=== PATIENT | male | born 1965 | race Caucasian/White ===

== ENCOUNTER 2022-10-06 13:53 | Emergency (ER) | payer OTHER, SELFPAY ==
--- NOTE | ~2022-10-06 | CT_ITS ---
EXAMINATION: CT ABDOMEN AND PELVIS WITH CONTRAST CLINICAL INFORMATION: Mid abdominal pain with question of pancreatitis COMPARISON: Ultrasound abdomen earlier today TECHNIQUE: Multidetector volumetric images were obtained from the superior aspect of the liver through the pubic symphysis following administration 85 mL of Omnipaque 350 intravenous contrast. Sagittal and coronal reformatted images were obtained on the technologist's workstation. Oral contrast: No This CT examination was performed using dose optimization techniques as appropriate, variously including the following: *Automated exposure control *Adjustment of mA and/or kV according to patient size (this includes techniques or standardized protocols for targeted exams where dose is matched to indication/reason for exam; i.e. extremities or head) *Use of iterative reconstruction technique DLP: 374 mGy-cm FINDINGS: LUNG BASES: The visualized lung bases are unremarkable. LIVER, GALLBLADDER, AND BILIARY TREE: The liver is normal in size, shape, and attenuation. No focal hepatic lesion or intrahepatic biliary ductal dilatation is present. The gallbladder is contracted but unremarkable with no evidence of radiopaque gallstones, gallbladder wall thickening, or obvious pericholecystic inflammatory changes. The common bile duct is dilated at 0.9 cm. A distal obstructing stone or mass is not seen. PANCREAS: Pancreas appears unremarkable without any evidence to suggest pancreatitis. The pancreatic duct measures only 2 mm. No stones or masses are seen. SPLEEN: Unremarkable. ADRENAL GLANDS: Unremarkable. KIDNEYS AND URETERS: The kidneys are normal in size, shape, and attenuation. Bilateral parapelvic Bosniak class I simple renal cysts are seen. There is a 7 mm benign fat density angiomyolipoma arising from the lower pole of the right kidney posteriorly corresponding with the echogenic mass seen on the ultrasound. No worrisome solid masses are seen. No hydronephrosis, hydroureter, or calculi seen. No perinephric stranding. BLADDER: There is symmetric thickening of the bladder wall at 6 mm. No bladder calculi. No bladder masses. GASTROINTESTINAL TRACT: The small and large bowel are unremarkable aside from extensive sigmoid diverticulosis without evidence of diverticulitis. The appendix is unremarkable. ABDOMINAL WALL: No significant hernia is appreciated. LYMPH NODES: There is no retroperitoneal lymphadenopathy VASCULAR: Unremarkable. PELVIC VISCERA: The prostate and seminal vesicles are unremarkable. OSSEOUS STRUCTURES: Unremarkable. CT/CT abdomen pelvis w IV con IMPRESSION: 1. There is dilatation of the common bile duct but no intrahepatic biliary ductal dilatation. If clinically indicated, further evaluation could always be performed with MRCP. 2. The pancreas appears unremarkable without any evidence of pancreatitis. 3. Incidental note made of bilateral Bosniak class I renal cysts which need no further imaging or follow-up and a benign 7 mm right renal angiomyolipoma. 4. Incidental note made of sigmoid diverticulosis without diverticulitis and symmetric thickening of the bladder wall. Fleischner guidelines were followed.
--- NOTE | ~2022-10-06 | US_ITS ---
EXAMINATION: US ABDOMEN LIMITED CLINICAL INFORMATION: Right upper quadrant pain. COMPARISON: None TECHNIQUE: Real-time imaging of the right upper quadrant abdominal viscera. FINDINGS: PANCREAS: The pancreas appears unremarkable, without masses or ductal dilatation, with the exception of the tail which is obscured by bowel gas. LIVER: The liver is normal in size. The liver contour is normal. There is diffuse increased liver parenchymal echogenicity, consistent with hepatic steatosis. No focal hepatic lesion. There is no intrahepatic biliary duct dilatation seen. GALLBLADDER: The gallbladder is contracted but otherwise unremarkable without evidence of stones, sludge, polyps, wall thickening or pericholecystic fluid. COMMON BILE DUCT: Normal in caliber measuring 0.7 cm in diameter. RIGHT KIDNEY: There is a brightly echogenic 0.8 cm cortical mass present in the right kidney that has ultrasound appearances consistent with a benign angiomyolipoma. There is an extrarenal pelvis but no hydronephrosis. No renal calculi or focal parenchymal lesions. The kidney measures 10.0 cm in maximum dimension. FREE FLUID: None. US/US abdomen limited IMPRESSION: 1. Hepatic steatosis. 2. Incidental note made of a 0.8 cm right renal mass with ultrasound appearances consistent with a benign angiomyolipoma. If certainty of diagnosis is needed, MRI would be the exam of choice.
--- NOTE | 2022-10-06 15:48 | ED_ITS ---
HPI - Abdominal Pain General Chief Complaint: Abdominal Pain <JOSE Vergara - Last Filed: 10/06/22 15:53> Stated Complaint: severe r side abd pain <JOSE Vergara - Last Filed: 10/06/22 15:53> Time Seen by Provider: 10/06/22 21:01 <JOSE Vergara - Last Filed: 10/06/22 15:53> Source: patient <Francisco Aranda MD - Last Filed: 10/07/22 00:58> Mode of arrival: ambulatory <Francisco Aranda MD - Last Filed: 10/07/22 00:58> Limitations: no limitations <Francisco Aranda MD - Last Filed: 10/07/22 00:58> History of Present Illness HPI narrative: patient with no significant past medical history noticed pain in the right upper quadrant since a.m. today patient has no history of alcohol use no history of pancreatitis no nausea no vomiting no abdominal distension no relation of pain with food no urinary complaints no fever or chills patient never had similar pain in the past no weight loss prior colonoscopy was normal <Francisco Aranda MD - Last Filed: 10/07/22 00:58> Related Data Home Medications: Previous Rx's Medication Instructions Recorded pantoprazole 40 mg tablet,delayed 40 mg PO DAILY #30 tabs 10/06/22 release (Protonix) <JOSE Vergara - Last Filed: 10/06/22 15:53> Allergies/Adverse Reactions: Allergies Allergy/AdvReac Type Severity Reaction Status Date / Time No Known Allergies Allergy Verified 10/06/22 15:50 <JOSE Vergara - Last Filed: 10/06/22 15:53> Review of Systems Review of Systems Yes all other systems are reviewed and are negative <Francisco Aranda MD - Last Filed: 10/07/22 00:58> PMF Social History Social History: Social History Advance Directives: No Advance Directives Information Provided: No <JOSE Vergara - Last Filed: 10/06/22 15:53> Physical Exam ED Vital Signs: Vital Signs - 24 hr 10/06/22 15:49 10/06/22 20:30 Temperature 98.7 F 98.1 F Pulse Rate 104 H 90 Respiratory Rate 16 16 Blood Pressure 161/83 H 171/101 H Pulse Oximetry 97 97 Oxygen Delivery Method Room Air Room Air BMI result Body Mass Index 24.0 <JOSE Vergara - Last Filed: 10/06/22 15:53> Vital Signs - 24 hr 10/06/22 15:49 10/06/22 20:30 Temperature 98.7 F 98.1 F Pulse Rate 104 H 90 Respiratory Rate 16 16 Blood Pressure 161/83 H 171/101 H Pulse Oximetry 97 97 Oxygen Delivery Method Room Air Room Air BMI result Body Mass Index 24.0 <Francisco Aranda MD - Last Filed: 10/07/22 00:58> Appearance: Alert. Oriented X3. No acute distress. Eyes: PERRLA, No Nystagmus no pallor or icterus ENT: Pharynx normal. Oral Mucosa moist Neck: Normal inspection. Neck supple. CVS: Normal heart rate and rhythm. Pulses normal. Respiratory: No respiratory distress. Equal air entry bilateral, no wheezing/rales/rhonchi Abdomen: Soft , tenderness in right upper quadrant no rebound tenderness or guarding, Bowel sounds are present, no mass palpable, no CVA tenderness Skin: Skin warm and dry. Normal skin color. Normal skin turgor. Extremities: No lower extremity edema. No calf tenderness Neuro: Oriented X 3. No motor deficit. <Francisco Aranda MD - Last Filed: 10/07/22 00:58> Course Course Course Narrative: RME - 57 yo male presents to the ER with severe right upper quadrant pain that started this morning. Dizzy and nauseated but no vomiting. Admits to heavy drinking last night for the super bowl but denies any falls, trauma, bruises. Tachycardic and hypertensive in triage. Labs and RUQ U/S ordered. <JOSE Vergara - Last Filed: 10/06/22 15:53> Medical Decision Making Medical Decision Making MDM Narrative: patient with nonspecific right upper quadrant pain ultrasound was negative for gallstones CT scan was done which showed dilated CBD but no stone seen patient had normal liver function test no vomiting no pancreatic inflammation or Mass. patient advised to follow-up with economics consultant <Francisco Aranda MD - Last Filed: 10/07/22 00:58> Differential Diagnosis pancreatitis/ cholecystitis /peptic ulcer disease / kidney stone <Francisco Aranda MD - Last Filed: 10/07/22 00:58> Lab Data MDM Lab Attestation statement: I reviewed the patient's lab results. <Francisco Aranda MD - Last Filed: 10/07/22 00:58> Result Diagrams: 10/06/22 16:46 10/06/22 16:46 <JOSE Vergara - Last Filed: 10/06/22 15:53> Labs: Lab Results 10/06/22 10/06/22 10/06/22 Range/Units 16:46 16:46 16:46 WBC 9.1 (4.8-10.8) X10*3/uL RBC 4.77 (4.60-5.80) X10*6/uL Hgb 15.3 (14.0-18.0) g/dl Hct 44.9 (42.0-52.0) % MCV 94.1 (80.0-98.0) fL MCH 32.1 (27.0-33.0) pg MCHC 34.1 (31.0-36.0) g/dl RDW 12.6 (11.0-16.0) % Plt Count 221 (160-400) X10*3/uL MPV 8.7 L (9.4-12.4) fL Immature Gran % (Auto) 0.2 (0.0-0.4) % Neut % (Auto) 66.1 (45-73) % Lymph % (Auto) 25.3 (20-40) % Smith % (Auto) 7.0 (2-11) % Eos % (Auto) 0.6 (0-4) % Baso % (Auto) 0.8 (0-2) % Lymph # (Auto) 2.3 (1.2-4.9) X10*3/uL Smith # (Auto) 0.6 (0.1-1.2) X10*3/uL Eos # (Auto) 0.1 (0.0-0.4) X10*3/uL Baso # (Auto) 0.1 (0.0-0.2) X10*3/uL Abs Immat Gran (auto) 0.02 (0.00-0.03) X10*3/uL Absolute Neuts (auto) 6.0 (2.0-8.3) x10*3/uL Absolute Nucleated RBC 0.000 (0.0-0.012) X10*3/uL Nucleated RBC % (auto) 0.0 (0.0-0.2) /100WBC Sodium 142 (135-145) mmol/L Potassium 4.2 (3.3-5.1) mmol/L Chloride 103 (96-108) mmol/L Carbon Dioxide 27 (22-29) mmol/L Anion Gap 16 (12-20) BUN 14 (9-16) mg/dL Creatinine 0.94 (0.5-1.4) mg/dL Estim Creat Clear Calc 79.1 Estimated GFR > 60 Random Glucose 120 H (60-115) mg/dL Calcium 9.8 (8.4-10.2) mg/dL Magnesium 2.1 (1.6-2.6) mg/dL Total Bilirubin 0.6 (0.0-1.0) mg/dL Direct Bilirubin 0.2 (0.0-0.5) mg/dL AST 31 (5-37) U/L ALT 27 (0-40) U/L Alkaline Phosphatase 59 (39-117) U/L Total Protein 6.8 (6.5-8.0) g/dL Albumin 4.3 (3.5-5.0) g/dL Triglycerides 74 mg/dL Cholesterol 224 mg/dL LDL Cholesterol, Calc 103 mg/dl HDL Cholesterol 107 mg/dL Lipase 98 H (8-78) U/L Urine Color Urine Appearance Urine pH (5.0-9.0) Ur Specific [place] (1.005-1.025) Urine Protein (Neg-Trace) mg/dL Urine Glucose (UA) (Negative) mg/dL Urine Ketones (Negative) mg/dL Urine Blood (Negative) Urine Nitrite (Negative) Ur Leukocyte Esterase (Negative) COVID-19 (ZHANG) Negative (Negative) COVID-19 Clin Com See Note 10/06/22 Range/Units 20:32 WBC (4.8-10.8) X10*3/uL RBC (4.60-5.80) X10*6/uL Hgb (14.0-18.0) g/dl Hct (42.0-52.0) % MCV (80.0-98.0) fL MCH (27.0-33.0) pg MCHC (31.0-36.0) g/dl RDW (11.0-16.0) % Plt Count (160-400) X10*3/uL MPV (9.4-12.4) fL Immature Gran % (Auto) (0.0-0.4) % Neut % (Auto) (45-73) % Lymph % (Auto) (20-40) % Smith % (Auto) (2-11) % Eos % (Auto) (0-4) % Baso % (Auto) (0-2) % Lymph # (Auto) (1.2-4.9) X10*3/uL Smith # (Auto) (0.1-1.2) X10*3/uL Eos # (Auto) (0.0-0.4) X10*3/uL Baso # (Auto) (0.0-0.2) X10*3/uL Abs Immat Gran (auto) (0.00-0.03) X10*3/uL Absolute Neuts (auto) (2.0-8.3) x10*3/uL Absolute Nucleated RBC (0.0-0.012) X10*3/uL Nucleated RBC % (auto) (0.0-0.2) /100WBC Sodium (135-145) mmol/L Potassium (3.3-5.1) mmol/L Chloride (96-108) mmol/L Carbon Dioxide (22-29) mmol/L Anion Gap (12-20) BUN (9-16) mg/dL Creatinine (0.5-1.4) mg/dL Estim Creat Clear Calc Estimated GFR Random Glucose (60-115) mg/dL Calcium (8.4-10.2) mg/dL Magnesium (1.6-2.6) mg/dL Total Bilirubin (0.0-1.0) mg/dL Direct Bilirubin (0.0-0.5) mg/dL AST (5-37) U/L ALT (0-40) U/L Alkaline Phosphatase (39-117) U/L Total Protein (6.5-8.0) g/dL Albumin (3.5-5.0) g/dL Triglycerides mg/dL Cholesterol mg/dL LDL Cholesterol, Calc mg/dl HDL Cholesterol mg/dL Lipase (8-78) U/L Urine Color Yellow Urine Appearance Cloudy Urine pH 7.0 (5.0-9.0) Ur Specific [place] 1.020 (1.005-1.025) Urine Protein Negative (Neg-Trace) mg/dL Urine Glucose (UA) 100 H (Negative) mg/dL Urine Ketones Trace (Negative) mg/dL Urine Blood Negative (Negative) Urine Nitrite Negative (Negative) Ur Leukocyte Esterase Negative (Negative) COVID-19 (ZHANG) (Negative) COVID-19 Clin Com <JOSE Vergara - Last Filed: 10/06/22 15:53> Lab Results 10/06/22 10/06/22 10/06/22 Range/Units 16:46 16:46 16:46 WBC 9.1 (4.8-10.8) X10*3/uL RBC 4.77 (4.60-5.80) X10*6/uL Hgb 15.3 (14.0-18.0) g/dl Hct 44.9 (42.0-52.0) % MCV 94.1 (80.0-98.0) fL MCH 32.1 (27.0-33.0) pg MCHC 34.1 (31.0-36.0) g/dl RDW 12.6 (11.0-16.0) % Plt Count 221 (160-400) X10*3/uL MPV 8.7 L (9.4-12.4) fL Immature Gran % (Auto) 0.2 (0.0-0.4) % Neut % (Auto) 66.1 (45-73) % Lymph % (Auto) 25.3 (20-40) % Smith % (Auto) 7.0 (2-11) % Eos % (Auto) 0.6 (0-4) % Baso % (Auto) 0.8 (0-2) % Lymph # (Auto) 2.3 (1.2-4.9) X10*3/uL Smith # (Auto) 0.6 (0.1-1.2) X10*3/uL Eos # (Auto) 0.1 (0.0-0.4) X10*3/uL Baso # (Auto) 0.1 (0.0-0.2) X10*3/uL Abs Immat Gran (auto) 0.02 (0.00-0.03) X10*3/uL Absolute Neuts (auto) 6.0 (2.0-8.3) x10*3/uL Absolute Nucleated RBC 0.000 (0.0-0.012) X10*3/uL Nucleated RBC % (auto) 0.0 (0.0-0.2) /100WBC Sodium 142 (135-145) mmol/L Potassium 4.2 (3.3-5.1) mmol/L Chloride 103 (96-108) mmol/L Carbon Dioxide 27 (22-29) mmol/L Anion Gap 16 (12-20) BUN 14 (9-16) mg/dL Creatinine 0.94 (0.5-1.4) mg/dL Estim Creat Clear Calc 79.1 Estimated GFR > 60 Random Glucose 120 H (60-115) mg/dL Calcium 9.8 (8.4-10.2) mg/dL Magnesium 2.1 (1.6-2.6) mg/dL Total Bilirubin 0.6 (0.0-1.0) mg/dL Direct Bilirubin 0.2 (0.0-0.5) mg/dL AST 31 (5-37) U/L ALT 27 (0-40) U/L Alkaline Phosphatase 59 (39-117) U/L Total Protein 6.8 (6.5-8.0) g/dL Albumin 4.3 (3.5-5.0) g/dL Triglycerides 74 mg/dL Cholesterol 224 mg/dL LDL Cholesterol, Calc 103 mg/dl HDL Cholesterol 107 mg/dL Lipase 98 H (8-78) U/L Urine Color Urine Appearance Urine pH (5.0-9.0) Ur Specific [place] (1.005-1.025) Urine Protein (Neg-Trace) mg/dL Urine Glucose (UA) (Negative) mg/dL Urine Ketones (Negative) mg/dL Urine Blood (Negative) Urine Nitrite (Negative) Ur Leukocyte Esterase (Negative) COVID-19 (ZHANG) Negative (Negative) COVID-19 Clin Com See Note 10/06/22 Range/Units 20:32 WBC (4.8-10.8) X10*3/uL RBC (4.60-5.80) X10*6/uL Hgb (14.0-18.0) g/dl Hct (42.0-52.0) % MCV (80.0-98.0) fL MCH (27.0-33.0) pg MCHC (31.0-36.0) g/dl RDW (11.0-16.0) % Plt Count (160-400) X10*3/uL MPV (9.4-12.4) fL Immature Gran % (Auto) (0.0-0.4) % Neut % (Auto) (45-73) % Lymph % (Auto) (20-40) % Smith % (Auto) (2-11) % Eos % (Auto) (0-4) % Baso % (Auto) (0-2) % Lymph # (Auto) (1.2-4.9) X10*3/uL Smith # (Auto) (0.1-1.2) X10*3/uL Eos # (Auto) (0.0-0.4) X10*3/uL Baso # (Auto) (0.0-0.2) X10*3/uL Abs Immat Gran (auto) (0.00-0.03) X10*3/uL Absolute Neuts (auto) (2.0-8.3) x10*3/uL Absolute Nucleated RBC (0.0-0.012) X10*3/uL Nucleated RBC % (auto) (0.0-0.2) /100WBC Sodium (135-145) mmol/L Potassium (3.3-5.1) mmol/L Chloride (96-108) mmol/L Carbon Dioxide (22-29) mmol/L Anion Gap (12-20) BUN (9-16) mg/dL Creatinine (0.5-1.4) mg/dL Estim Creat Clear Calc Estimated GFR Random Glucose (60-115) mg/dL Calcium (8.4-10.2) mg/dL Magnesium (1.6-2.6) mg/dL Total Bilirubin (0.0-1.0) mg/dL Direct Bilirubin (0.0-0.5) mg/dL AST (5-37) U/L ALT (0-40) U/L Alkaline Phosphatase (39-117) U/L Total Protein (6.5-8.0) g/dL Albumin (3.5-5.0) g/dL Triglycerides mg/dL Cholesterol mg/dL LDL Cholesterol, Calc mg/dl HDL Cholesterol mg/dL Lipase (8-78) U/L Urine Color Yellow Urine Appearance Cloudy Urine pH 7.0 (5.0-9.0) Ur Specific [place] 1.020 (1.005-1.025) Urine Protein Negative (Neg-Trace) mg/dL Urine Glucose (UA) 100 H (Negative) mg/dL Urine Ketones Trace (Negative) mg/dL Urine Blood Negative (Negative) Urine Nitrite Negative (Negative) Ur Leukocyte Esterase Negative (Negative) COVID-19 (ZHANG) (Negative) COVID-19 Clin Com <Francisco Aranda MD - Last Filed: 10/07/22 00:58> Medications Administered Discontinued Medications Generic Name Dose Route Start Last Admin Trade Name Freq PRN Reason Stop Dose Admin Iohexol 100 ml 10/06/22 22:21 10/06/22 22:22 Iohexol 350 Mg/Ml 100 Ml Infus..Btl IV 10/06/22 22:22 85 ml ONCE ONE Administration <JOSE Vergara - Last Filed: 10/06/22 15:53> Medications Administered Discontinued Medications Generic Name Dose Route Start Last Admin Trade Name Freq PRN Reason Stop Dose Admin Iohexol 100 ml 10/06/22 22:21 10/06/22 22:22 Iohexol 350 Mg/Ml 100 Ml Infus..Btl IV 10/06/22 22:22 85 ml ONCE ONE Administration <Francisco Aranda MD - Last Filed: 10/07/22 00:58> Discharge Plan Discharge Clinical Impression: Abdominal pain <JOSE Vergara - Last Filed: 10/06/22 15:53> Patient Disposition: Home, Self-Care <JOSE Vergara - Last Filed: 10/06/22 15:53> Instructions: Abdominal Pain (ED) <JOSE Vergara - Last Filed: 10/06/22 15:53> Additional Instructions: avoid fried food follow-up with economics consultant for further evaluation including MRI/MRCP report to the ER if pain gets worse /vomiting <JOSE Vergara - Last Filed: 10/06/22 15:53> Prescriptions: New pantoprazole [Protonix] 40 mg tablet,delayed release (DR/EC) 40 mg PO DAILY Qty: 30 0RF <JOSE Vergara - Last Filed: 10/06/22 15:53> Referrals: Max Chairez MD [Physician] - 1 week <JOSE Vergara - Last Filed: 10/06/22 15:53> Interventions: ED Discharge Assessment Last Done: 10/06/22 23:42 <JOSE Vergara - Last Filed: 10/06/22 15:53> Discharge Date/Time: 10/06/22 23:42 <JOSE Vergara - Last Filed: 10/06/22 15:53>
[2022-10-06 15:49] VITALS: BP 161/83; PULSE 104; RESP 16; TEMP 37.1; O2SAT 97; BMI 24.0
[2022-10-06 16:55] LABS: MANUAL DIFF FLAG NO
[2022-10-06 16:58] LABS: Basophils Absolute Auto 0.1 X10*3/uL (0.0-0.2); Basophils Percent Auto 0.8 % (0-2); Eosinophils Absolute Auto 0.1 X10*3/uL (0.0-0.4); Eosinophils Percent Auto 0.6 % (0-4); Hematocrit 44.9 % (42.0-52.0); Hemoglobin 15.3 g/dl (14.0-18.0); Imm Gran Abs Auto 0.02 X10*3/uL (0.00-0.03); Imm Gran Pct Auto 0.2 % (0.0-0.4); Lymphocytes Absolute Auto 2.3 X10*3/uL (1.2-4.9); Lymphocytes Percent Auto 25.3 % (20-40); Mean Corpuscular HGB Conc 34.1 g/dl (31.0-36.0); Mean Corpuscular Hemoglobin 32.1 pg (27.0-33.0); Mean Corpuscular Volume 94.1 fL (80.0-98.0); Mean Platelet Volume 8.7 fL (9.4-12.4); Monocytes Absolute Auto 0.6 X10*3/uL (0.1-1.2); Neutrophils Percent Auto 66.1 % (45-73); Platelet Count 221 X10*3/uL (160-400); Red Blood Count 4.77 X10*6/uL (4.60-5.80); Red Cell Distribution Width 12.6 % (11.0-16.0); White Blood Count 9.1 X10*3/uL (4.8-10.8)
[2022-10-06 17:11] LABS: COVID-19 Test Negative (Negative); IDNOW Serial# 16C4AD1C
[2022-10-06 17:19] LABS: Anion Gap 16 (12-20)
[2022-10-06 17:24] LABS: Alanine Aminotransferase 27 U/L (0-40); Albumin Level 4.3 g/dL (3.5-5.0); Alkaline Phosphatase 59 U/L (39-117); Aspartate Amino Transferase 31 U/L (5-37); Bilirubin Direct 0.2 mg/dL (0.0-0.5); Bilirubin Total 0.6 mg/dL (0.0-1.0); Blood Urea Nitrogen 14 mg/dL (9-16); Calcium 9.8 mg/dL (8.4-10.2); Carbon Dioxide 27 mmol/L (22-29); Chloride 103 mmol/L (96-108); Creatinine Clr Calc Pharmacy 79.1; Estimated Glomerular Filt Rate > 60; Glucose Random 120 mg/dL (60-115); Lipase 98 U/L (8-78); Magnesium 2.1 mg/dL (1.6-2.6); Potassium 4.2 mmol/L (3.3-5.1); Sodium 142 mmol/L (135-145); Total Protein 6.8 g/dL (6.5-8.0)
[2022-10-06 20:30] VITALS: BP 171/101; PULSE 90; RESP 16; TEMP 36.7; O2SAT 97
--- NOTE | 2022-10-06 20:33 | MHC.EDTECH ---
pt vitals sign taken and urine sample sent to lab .
[2022-10-06 20:40] LABS: Appearance Urine Cloudy; Color Urine Yellow; Glucose Urine UA 100 mg/dL (Negative); Leukocyte Esterase Urine Negative (Negative); Nitrite Urine Negative (Negative); Urine Blood Negative (Negative); Urine Ketones Trace mg/dL (Negative); Urine Protein Negative (Neg-Trace)
[2022-10-06 21:40] LABS: Cholesterol 224 mg/dL; HDL Cholesterol 107 mg/dL; LDL Cholesterol Calculated 103 mg/dl; Triglycerides 74 mg/dL
[2022-10-06] MEDS: iohexoL 350 MG/ML 100 ML INFUS..BTL IV (22:22)
== END 2022-10-06 23:42 | disposition home or self-care (01) ==
PROVIDERS: Physician Assistant; Emergency Provider Internal Medicine
DX: R10.11 Right upper quadrant pain (principal); Z20.822 Contact with and (suspected) exposure to COVID-19; R00.0 Tachycardia, unspecified; I10 Essential (primary) hypertension
CPT/HCPCS: 74177; 76705; 80048; 80061; 80076; 81003; 83690; 83735; 85025; 87635; 99283; 99284; Q9967